=== PATIENT | male | born 1950 | race Caucasian/White ===

== ENCOUNTER 2016-10-16 03:45 | Inpatient (IN) | payer OTHER, MEDICARE ==
[~2016-10-16] VITALS: Ht 165.1 cm; Wt 77.1 kg
[~2016-10-16 03:45] MED LIST: DIOVAN320 M1 PO; PROTONIX40 M3 PO
[2016-10-16] MEDS ORDERED: ASPIRIN325 M2 PO (09:41)
[2016-10-16] MEDS ORDERED: DILAUDID4 M1 PO (09:41)
[2016-10-16] MEDS ORDERED: COLACE100 M1 PO (09:41)
[2016-10-16] MEDS ORDERED: MS CONTIN30 M1 PO (09:41)
[2016-10-16] MEDS ORDERED: MIRALAX17 G1 PO (09:41)
--- NOTE | 2016-10-16 09:44 | Patient Discharge Instructions ---
Discharge Instructions General Discharge Information You were seen/treated for: Right hip degenerative joint disease You had these procedures: Right total hip arthroplasty Watch for these problems: Significantly increased pain or inability to ambulate Temperature over 101.5, significantly increased redness or drainage from around incision No bath, but you may shower: Yes Other wound care: Daily dry dressing change Special Instructions: See preprinted information sheet Diet Continue normal diet: Yes Activity Activity Self Limited: Yes Pounds, do NOT lift more than: 10 Other activity limits: Ambulate with rolling walker as per physical therapy recommendations Acute Coronary Syndrome Inclusion Criteria At DC or during hospital stay patient has or had the following: ACS DIAGNOSIS No Discharge Core Measures Meds if any: Prescribed or Continued at Discharge Meds if any: NOT Prescribed or Continued at Discharge Congestive Heart Failure Inclusion Criteria At DC or during hospital stay patient has or had the following: CHF DIAGNOSIS No Discharge Core Measures Meds if any: Prescribed or Continued at Discharge Meds if any: NOT Prescribed or Continued at Discharge Cerebrovascular accident Inclusion Criteria At DC or during hospital stay patient has or had the following: CVA/TIA Diagnosis No Discharge Core Measures Meds if any: Prescribed or Continued at Discharge Meds if any: NOT Prescribed or Continued at Discharge Venous thromboembolism Inclusion Criteria VTE Diagnosis No VTE Type NONE VTE Confirmed by (Test) NONE Discharge Core Measures - Per Current guidelines, there needs to be overlap - treatment for the first 5 days of Warfarin therapy. - If discharged on Warfarin prior to 5 days of - overlap therapy, the patient will need to be - assessed for post discharge needs including - *Post discharge parental anticoagulation - *Warfarin and/or parental anticoagulation education - *Follow up date to check INR post discharge At least 5 days overlap therapy as Inpatient No Meds if any: Prescribed or Continued at Discharge Note: Overlap Therapy is Warfarin and Anticoagulant Meds if any: NOT Prescribed or Continued at Discharge
--- NOTE | 2016-10-16 09:46 | Surg Short-stay <48hrs Dis Sum ---
Visit Information Visit Dates Admission Date: 10/16/16 Discharge Date: 10/16/16 Surgical Short Stay DC Summary Admission Diagnosis: Right hip degenerative joint disease Final Diagnosis: Same Procedure(s): Right total hip arthroplasty Summary/Significant Findings: The patient is a On 10/16/2016 where he was brought to the operating theater and underwent a right total hip arthroplasty. The patient progressed as expected, his pain is in adequate control, and he worked with physical therapy. He tolerated a diet without nausea and voided postoperatively. The patient is discharged with an uneventful hospital course. Condition at Discharge: Stable Discharge Disposition: home health services Discharge instructions provided to patient/family: Yes Post discharge follow-up plan: Call the office to be seen in 6 weeks or earlier if needed
--- NOTE | 2016-10-16 12:09 | RADIOLOGY REPORT ---
EXAMINATION: XR HIP, RIGHT CLINICAL INFORMATION: Status post total hip arthroplasty. COMPARISON: None TECHNIQUE: Two views of the right hip. FINDINGS: There are postoperative changes consistent with a right total hip arthroplasty which appears in satisfactory position without evidence of immediate complication. Small amount of air is identified in the superficial soft tissues and joint space likely iatrogenic. IMPRESSION: Total hip arthroplasty changes as noted.
[2016-10-16 13:00] VITALS: BP 110/70
--- NOTE | 2016-10-16 13:32 | PN- Orthopedic ---
Subjective Subjective: Reports some groin numbness, but no pain. Not yet out of bed with PT. Denies dizziness. No shortness of breath. No chest pains. Due to void this afternooon. Objective Vital Signs and I&Os vss (reviewed pacu vitals) Physical Exam: General - alert & oriented x 3. comfortable. no acute distress. Lungs - clear bilaterally. no w/r/r. Cardiac - s1s2. reg. Abdomen - soft. nontender. Extremities - warm bilaterally. right hip dressing c/d/i. no hematoma. nvi. calves soft and nontender. Assessment/Plan Assessment/Plan This 66 year old white male is POD#0 s/p right total hip replacement tolerating diet. d/c iv fluids no pain at this time awaiting PT eval asa bid - dvt ppx bettina-operative antibiotics due to void this afternoon if cleared by PT and able to void, ok to discharge home later will d/w Core Measures/Miscellaneous Venous Thromboembolism VTE Risk Factors: Age > 40, Surgery VTE Contraindications: No Contraindications VTE Prophylaxis Ordered Inpt: Mech & Pharm VTE Diagnosis: No Beta Mehdi Is Beta Mehdi a Home Med? No Antibiotics Is Patient on Antibiotics? Yes If Yes: prophylaxis
[2016-10-16 15:27] VITALS: BP 120/70
[2016-10-16 15:59] VITALS: BP 120/70
--- NOTE | 2016-10-16 16:13 | Operative Report ---
Operative/Inv Procedure Report Surgery Date: 10/16/16 Name of Procedure: Right total hip replacement Pre-Operative Diagnosis: Primary right hip DJD Post-Operative Diagnosis: Same Estimated Blood Loss: 300 Surgeon/Orthopedic Shoe Maker: STANLEY PATRICIA,SARA [place] Anesthesia: block Operative/Procedure Note Note: Description of Procedure: The patient was taken to the operating room and positively identified. After induction of spinal anesthesia and administration of appropriate pre-operative antibiotics, the patient was positioned supine on the operating room table and all bony prominences were well padded. After performing a surgical timeout, the right lower extremity was prepped and draped in the usual sterile fashion. A direct anterior approach was made to the right hip. The incision was carried sharply through superficial soft tissues to the level of the fascia. Meticulous hemostasis was maintained with Bovie electocautery. The fascia over the tensor fascia sidra muscle was opened sharply and the interval between the TFL and the sartorius was entered bluntly taking care to stay lateral to the lateral femoral cutaneous nerve. It was noted that almost the entire anterior belly of the tensor fascia sidra muscle was replaced with fat. No intramuscular lipoma was noted. Retractors were placed around the femoral neck and the pericapsular fat was identified. The ascending branches of the lateral femoral circumflex vessels were identified and carefully coagulated. The pericapsular fat and anterior capsule were then resected. A napkin ring osteotomy was performed and the femoral head was removed without difficulty. Attention was then turned to the acetabulum. After appropriate placement of retractors, the acetabulum was exposed. Soft tissue was cleaned from the acetabular margin and notch. Overhanging osteophytes were removed and the teardrop was exposed. The acetabulum was then sequentially reamed to accept a 60 mm Jocelyn Tritanium hemispherical solid back shell. This was impacted into place in the appropriate position and fitted with a 36 mm Trident X3 zero degree polyethylene insert. Attention was then turned to the femur. After performing the appropriate ligament releases, the proximal femur was exposed. It was then sequentially broached to accept a size 4 Jocelyn accolade 2 stem. This was trialed for leg length and stability. The trial component was removed and the final component was impacted into place. The trunnion was carefully cleaned and fit with a 36 mm, -2.5 Biolox delta ceramic femoral head. The hip was reduced and put through a full range of motion and found to be stable. The articular space was then irrigated with sterile saline. The periarticular soft tissues were infilitrated with Marcaine. The fascial layer was closed with interrupted #1 vicryl suture and the skin was re-approximated with interrupted 2 -0 vicryl. The skin was closed with a running 3-0 V-Lock suture. Steri-strips and a sterile dressing were applied. The patient was awakened and taken to the recovery room in satisfactory condition.
== END 2016-10-16 17:30 | disposition home health service (06) | DRG 470 ==
LOC: ENRESERVTM → ENRESERVDT → SDA 03:45 → 2NA 12:59
PROVIDERS: ADMIT Orthopaedic Surgery
PROC: 0SR904A Replacement of Right Hip Joint with Ceramic on Polyethylene Synthetic Substitute, Uncemented, Open Approach (ICD-10-PCS; principal; 2016-10-16)
DX: M16.11 Unilateral primary osteoarthritis, right hip (principal); I10 Essential (primary) hypertension; Z85.828 Personal history of other malignant neoplasm of skin; K21.9 Gastro-esophageal reflux disease without esophagitis
CPT/HCPCS: 2NASP; 73502-RT; 88304; 97110-GO; 97116-GO; 97161-GP; 97530-GO; J0131; J0690; J0735; J2405; J7042